=== PATIENT | male | born 1950 | race African-American/Black ===

== ENCOUNTER → 2016-11-25 | Outpatient (CLI) | payer BC ==
[~2016-11-25] MED LIST: ASPI-1035 PO; CLOP75TA2 PO; GABA-290 PO; HYDR-2510 PO; HYDR-3513 PO; INSU100C6 SQ; LISI20TA PO
[2016-11-25 08:51] LABS: HEMATOCRIT. 36.1 % (42.0-52.0); MEAN CORPUSCULAR HEMOGLOBIN 26.9 pg (28.0-32.0); MEAN CORPUSCULAR VOLUME 80.9 fL (80.0-94.0); MEAN PLATELET VOLUME 8.8 fl (7.4-10.4); PLATELET 136 x1000/uL (130-400); RED BLOOD CELL COUNT 4.46 mill/uL (4.7-6.1); RED CELL DISTRIBUTION WIDTH 13.7 % (11.6-14.6)
[2016-11-25 09:08] LABS: CARBON DIOXIDE 26 mEq/L (21-32); CHLORIDE 107 mEq/L (98-107)
[2016-11-25 10:21] LABS: PLATELET ESTIMATE NORMAL
[2016-11-26 13:07] LABS: MICROALBUMIN RANDOM URINE 192.9 ug/mL (Not Estab.); MICROALBUMIN/CREATININE RATIO 279.6 mg/g creat (0.0-30.0)
== END | disposition home or self-care (01) ==
LOC: LAB 08:24
PROVIDERS: ATTEND Internal Medicine Geriatric Medicine
DX: Z01.812 Encounter for preprocedural laboratory examination (principal); E11.40 Type 2 diabetes mellitus with diabetic neuropathy, unspecified
CPT/HCPCS: 36415; 80053; 82043; 82570; 83036; 85025

== ENCOUNTER → 2017-01-04 | Outpatient (CLI) | payer BC ==
[~2017-01-04] MED LIST changes: -ASPI-1035 PO; +ASPI-1159 PO
== END | disposition home or self-care (01) ==
LOC: PVL 09:27
PROVIDERS: ATTEND Podiatrist Foot & Ankle Surgery
DX: I73.9 Peripheral vascular disease, unspecified (principal)
CPT/HCPCS: 93923

== ENCOUNTER 2017-05-29 08:23 | Observation (INO) | payer BC, MEDICARE ==
[~2017-05-29] VITALS: Ht 177.8 cm; Wt 93.4 kg
[~2017-05-29 08:23] MED LIST changes: +CLOP75TA16 PO; -CLOP75TA2 PO
[2017-05-29 08:56] LABS: HEMATOCRIT. 35.4 % (42.0-52.0); HEMOGLOBIN. 11.3 g/dL (14.0-18.0); MEAN CORPUSCULAR HEMOGLOBIN 26.2 pg (28.0-32.0); MEAN CORPUSCULAR VOLUME 82.3 fL (80.0-94.0); MEAN PLATELET VOLUME 8.6 fl (7.4-10.4); PLATELET 175 x1000/uL (130-400); RED BLOOD CELL COUNT 4.31 mill/uL (4.7-6.1); RED CELL DISTRIBUTION WIDTH 12.9 % (11.6-14.6)
[2017-05-29] MEDS ORDERED: HEPARIN SODIUM 1,000 UNIT/1ML VIAL IV ONE (10:12)
[2017-05-29 10:16] LABS: PLATELET ESTIMATE NORMAL
[2017-05-29 10:40] LABS: PARTIAL THROMBOPLASTIN TIME 23.1 sec (23.4-31.0); PROTHROMBIN TIME 10.4 sec (9.4-11.6)
[2017-05-29 10:48] LABS: CHLORIDE 107 mEq/L (98-107)
[2017-05-29 10:54] LABS: CARBON DIOXIDE 29 mEq/L (21-32)
[2017-05-29] MEDS ORDERED: OLME1TAB30 PO (11:14)
[2017-05-29] MEDS ORDERED: TAMS-11 PO (11:14)
[2017-05-29] MEDS ORDERED: LIDOCAINE HCL 1% 20ML VIAL (Pyxis) INJ ONE (11:40)
[2017-05-29] MEDS ORDERED: IODIXANOL 320MG/ML 100 ML BOTTLE IV ONE (11:42)
[2017-05-29] MEDS ORDERED: FENTANYL CITRATE/PF 50MCG/ML 2ML VIAL ONE ×2 (12:00→13:25)
[2017-05-29] MEDS ORDERED: MIDAZOLAM HCL 2 MG/2 ML VIAL ONE ×2 (12:00→13:30)
[2017-05-29] MEDS ORDERED: HYDROMORPHONE HCL/PF 2MG/ML (OR) ONE ×2 (12:32→12:58)
[2017-05-29 12:33] LABS: HEPATITIS B SURFACE AB 4.1 mIU/mL
[2017-05-29] MEDS ORDERED: IOVERSOL 240MG/ML 100ML BOTTLE IV ONE (12:54)
[2017-05-29 13:12] LABS: HEPATITIS B CORE AB IGM NEGATIVE
[2017-05-29 13:14] LABS: HEPATITIS A AB IGM NEGATIVE (NEGATIVE)
[2017-05-29 15:15] VITALS: BP 148/85
[2017-05-29] MEDS ORDERED: CLOPIDOGREL 75MG TABLET PO NR (15:37)
[2017-05-29 16:40] VITALS: BP 148/85
[2017-05-29 20:00] VITALS: BP 157/91
[2017-05-29] MEDS ORDERED: ONDANSETRON 4MG ODT PO SCH (20:45)
== END 2017-05-29 21:00 | disposition home or self-care (01) ==
LOC: CCL 08:23 → INTOOBSV 08:24 → 6EST 08:24
PROVIDERS: ADMIT Surgery Vascular Surgery; ATTEND Surgery Vascular Surgery
DX: I73.9 Peripheral vascular disease, unspecified (principal)
CPT/HCPCS: 36415; 37224; 37228; 37232; 75710; 80048; 82043; 82570; 83036; 85025; 85347; 85610; 85730; 86705; 86706; 86709; 86803; C1725; C1760; C1769; C1887; C1893; C1894; G0378; J1170; J1644; J2250; J3010; J3490; L1830; Q0162; Q9967

== ENCOUNTER → 2017-08-04 | Outpatient (CLI) | payer BC, MEDICARE ==
[~2017-08-04] MED LIST changes: +OLME1TAB30 PO; +TAMS-11 PO
[2017-08-04 10:45] LABS: HEPATITIS B SURFACE AB < 3.1 mIU/mL
[2017-08-04 11:25] LABS: HEPATITIS A AB IGM NEGATIVE (NEGATIVE)
[2017-08-04 11:31] LABS: HEPATITIS B SURFACE ANTIGEN REACTIVE PEND CONFIR
[2017-08-07 08:11] LABS: HBSAG CONFIRMATION Positive (.); HBSAG SCREEN Confirm. indicated (Negative)
[2017-11-20 10:20] LABS: CHLORIDE 104 mEq/L (98-107)
== END | disposition home or self-care (01) ==
LOC: LAB 09:06
PROVIDERS: ATTEND Internal Medicine Geriatric Medicine
DX: I10 Essential (primary) hypertension (principal); E78.00 Pure hypercholesterolemia, unspecified
CPT/HCPCS: 36415; 80061; 82270; 86705; 86706; 86709; 86803; 87340

== ENCOUNTER 2017-08-24 09:44 | Day surgery (SDC) | payer BC, MEDICARE ==
[~2017-08-24] VITALS: Ht 177.8 cm; Wt 93.4 kg
[2017-08-24 11:25] LABS: HEMATOCRIT 35.8 % (42.0-52.0); HEMOGLOBIN 11.5 g/dL (14.0-18.0); MEAN CORPUSCULAR HEMOGLOBIN 26.3 pg (28.0-32.0); MEAN CORPUSCULAR VOLUME 82.3 fL (80.0-94.0); PLATELET 130 x1000/uL (130-400); RED BLOOD CELL COUNT 4.35 mill/uL (4.7-6.1); RED CELL DISTRIBUTION WIDTH 13.3 % (11.6-14.6)
[2017-08-24 11:35] LABS: PARTIAL THROMBOPLASTIN TIME 23.6 sec (23.4-31.0); PROTHROMBIN TIME 10.8 sec (9.4-11.6)
[2017-08-24] MEDS ORDERED: FENTANYL CITRATE/PF 50MCG/ML 2ML VIAL ONE (13:32)
[2017-08-24] MEDS ORDERED: MIDAZOLAM HCL 2 MG/2 ML VIAL ONE (13:32)
[2017-08-24] MEDS ORDERED: LIDOCAINE HCL/PF 1% 10 MG/ML 5ML VIAL ONE (13:33)
[2017-08-24] MEDS ORDERED: IODIXANOL 320MG/ML 100 ML BOTTLE IV ONE (14:20)
[2017-08-24] MEDS ORDERED: ONDANSETRON HCL 4MG/2ML VIAL IV PRN (16:00)
[2017-08-24] MEDS ORDERED: ATROPINE SULFATE 1MG/10ML SYR IV PRN (16:00)
[2017-08-24] MEDS ORDERED: ACETAMINOPHEN 325MG TABLET PO PRN (16:00)
[2017-08-24] MEDS ORDERED: MORPHINE SULFATE 4 MG/ML CPJ (NOT FOR IM USE) IV PRN (16:00)
== END 2017-08-24 19:15 | disposition home or self-care (01) ==
LOC: CCL 09:44
PROVIDERS: ATTEND Surgery Vascular Surgery
DX: I70.292 Other atherosclerosis of native arteries of extremities, left leg (principal); D63.8 Anemia in other chronic diseases classified elsewhere; I12.9 Hypertensive chronic kidney disease with stage 1 through stage 4 chronic kidney disease, or unspecified chronic kidney disease; N18.2 Chronic kidney disease, stage 2 (mild); E11.22 Type 2 diabetes mellitus with diabetic chronic kidney disease; Z98.890 Other specified postprocedural states; Z79.4 Long term (current) use of insulin
CPT/HCPCS: 36247; 36415; 75710; 75774; 80048; 85027; 85610; 85730; 99152; C1760; C1769; J1644; J2250; J3010; J3490; Q9967; 36245

== ENCOUNTER → 2017-10-09 | Outpatient (CLI) | payer BC, MEDICARE ==
[2017-10-09 10:31] LABS: BASOPHILS % 0.7 % (0.0-2.0); HEMATOCRIT. 36.4 % (42.0-52.0); HEMOGLOBIN. 11.9 g/dL (14.0-18.0); LYMPHOCYTES % 39.3 % (20.0-50.0); MEAN CORPUSCULAR HEMOGLOBIN 26.8 pg (28.0-32.0); MEAN PLATELET VOLUME 8.9 fl (7.4-10.4); MONOCYTES % 7.4 % (2.0-8.0); NEUTROPHILS % 42.6 % (40.0-76.0); PLATELET 155 x1000/uL (130-400); RED BLOOD CELL COUNT 4.45 mill/uL (4.7-6.1); RED CELL DISTRIBUTION WIDTH 13.7 % (11.6-14.6)
[2017-10-09 10:33] LABS: CHLORIDE 104 mEq/L (98-107)
[2017-10-09 10:42] LABS: LDL CHOLESTEROL 70 mg/dL (5-100); TOTAL IRON BINDING CAPACITY 333 ug/dL (250-450)
[2017-10-09 10:44] LABS: HDL CHOLESTEROL 43 mg/dL (40-59)
[2017-10-09 10:46] LABS: KETONES URINE NEGATIVE (NEGATIVE); LEUKOCYTE ESTERASE URINE 1+ (NEGATIVE); NITRITE URINE NEGATIVE (NEGATIVE); OCCULT BLOOD URINE NEGATIVE (NEGATIVE); PH URINE 6.5 (4.5-8.0); PROTEIN URINE NEGATIVE (NEGATIVE); SPECIFIC GRAVITY URINE 1.012 (1.005-1.030); UROBILINOGEN URINE 0.2 E.U./dL (0.2-1.0)
[2017-10-09 10:47] LABS: CLARITY URINE CLEAR (CLEAR); COLOR URINE YELLOW (YELLOW)
[2017-10-09 11:35] LABS: HEPATITIS B SURFACE AB < 3.1 mIU/mL; PROSTRATE SPECIFIC AG TOTAL 1.02 ng/mL (0.0-4.0)
[2017-10-09 12:10] LABS: HEPATITIS B CORE AB IGM NEGATIVE
[2017-10-09 12:12] LABS: HEPATITIS A AB IGM NEGATIVE (NEGATIVE)
[2017-10-09 14:45] LABS: VITAMIN B12 SERUM 386 pg/mL (211-911)
[2017-10-10 13:07] LABS: *CREATININE RANDOM URINE 101.7 mg/dL (Not Estab.); MICROALBUMIN RANDOM URINE 20.8 ug/mL (Not Estab.)
[2017-10-10 15:10] LABS: HBSAG CONFIRMATION Positive (.); HBSAG SCREEN Confirm. indicated (Negative)
[2017-10-10 17:07] LABS: VITAMIN D 25-OH 29.3 ng/mL (30.0-100.0)
== END | disposition home or self-care (01) ==
LOC: LAB 09:23
PROVIDERS: ATTEND Internal Medicine Geriatric Medicine
DX: I10 Essential (primary) hypertension (principal); E78.00 Pure hypercholesterolemia, unspecified; R79.89 Other specified abnormal findings of blood chemistry; Z79.899 Other long term (current) drug therapy
CPT/HCPCS: 36415; 80053; 80061; 81003; 82043; 82306; 82570; 82607; 83036; 83540; 83550; 84153; 84443; 85025; 86592; 86705; 86706; 86709; 86803; 87086; 87340

== ENCOUNTER → 2017-11-20 | Outpatient (CLI) | payer BC, MEDICARE | END | disposition home or self-care (01) | LOC: LAB 09:44 | PROVIDERS: ATTEND Internal Medicine Geriatric Medicine | DX: I10 Essential (primary) hypertension (principal) | CPT/HCPCS: 82270 ==

== ENCOUNTER → 2018-03-30 | Outpatient (CLI) | payer BC, MEDICARE ==
[2018-03-30 12:15] LABS: BASOPHILS % 0.7 % (0.0-2.0); EOSINOPHILS % 12.5 % (0.0-5.0); HEMOGLOBIN. 11.1 g/dL (14.0-18.0); LYMPHOCYTES % 34.9 % (20.0-50.0); MEAN CORPUSCULAR HEMOGLOBIN 26.7 pg (28.0-32.0); MEAN CORPUSCULAR VOLUME 81.5 fL (80.0-94.0); MEAN PLATELET VOLUME 8.7 fl (7.4-10.4); MONOCYTES % 8.2 % (2.0-8.0); NEUTROPHILS % 43.7 % (40.0-76.0); PLATELET 156 x1000/uL (130-400); RED BLOOD CELL COUNT 4.17 mill/uL (4.7-6.1); RED CELL DISTRIBUTION WIDTH 13.4 % (11.6-14.6)
[2018-03-30 12:30] LABS: CHLORIDE 104 mEq/L (98-107)
== END | disposition home or self-care (01) ==
LOC: LAB 11:51
PROVIDERS: ATTEND Internal Medicine Geriatric Medicine
DX: E11.40 Type 2 diabetes mellitus with diabetic neuropathy, unspecified (principal)
CPT/HCPCS: 36415; 80053; 83036; 85025

== ENCOUNTER → 2018-06-21 | Outpatient (CLI) | payer BC ==
[2018-06-21 10:45] LABS: BASOPHILS % 1.2 % (0.0-2.0); EOSINOPHILS % 13.5 % (0.0-5.0); HEMATOCRIT. 36.9 % (42.0-52.0); LYMPHOCYTES % 39.1 % (20.0-50.0); MEAN CORPUSCULAR HEMOGLOBIN 26.5 pg (28.0-32.0); MEAN CORPUSCULAR VOLUME 81.4 fL (80.0-94.0); MEAN PLATELET VOLUME 8.6 fl (7.4-10.4); MONOCYTES % 6.1 % (2.0-8.0); NEUTROPHILS % 40.1 % (40.0-76.0); PLATELET 113 x1000/uL (130-400); RED BLOOD CELL COUNT 4.53 mill/uL (4.7-6.1); RED CELL DISTRIBUTION WIDTH 14.1 % (11.6-14.6)
[2018-06-21 11:01] LABS: PHOSPHORUS 3.8 mg/dL (2.5-4.9)
== END | disposition home or self-care (01) ==
LOC: LAB 09:28
PROVIDERS: ATTEND Internal Medicine Geriatric Medicine
DX: I73.9 Peripheral vascular disease, unspecified (principal); I10 Essential (primary) hypertension; E11.40 Type 2 diabetes mellitus with diabetic neuropathy, unspecified
CPT/HCPCS: 36415; 80048; 83036; 84100; 84550

== ENCOUNTER → 2018-07-25 | Outpatient (CLI) | payer BC ==
[~2018-07-25] MED LIST changes: +ATEN50TA PO; +INSU100I33 SQ; +ROSU10TA25 PO
[2018-07-25 10:36] LABS: BASOPHILS % 0.4 % (0.0-2.0); EOSINOPHILS % 7.6 % (0.0-5.0); HEMATOCRIT. 37.7 % (42.0-52.0); HEMOGLOBIN. 12.1 g/dL (14.0-18.0); LYMPHOCYTES % 45.9 % (20.0-50.0); MEAN CORPUSCULAR VOLUME 81.3 fL (80.0-94.0); MEAN PLATELET VOLUME 8.6 fl (7.4-10.4); MONOCYTES % 7.8 % (2.0-8.0); NEUTROPHILS % 38.3 % (40.0-76.0); PLATELET 135 x1000/uL (130-400); RED BLOOD CELL COUNT 4.64 mill/uL (4.7-6.1); RED CELL DISTRIBUTION WIDTH 13.7 % (11.6-14.6)
[2018-07-25 10:46] LABS: CHLORIDE 105 mEq/L (98-107)
== END | disposition home or self-care (01) ==
LOC: LAB 09:45
PROVIDERS: ATTEND Internal Medicine Geriatric Medicine
DX: I12.9 Hypertensive chronic kidney disease with stage 1 through stage 4 chronic kidney disease, or unspecified chronic kidney disease (principal); N18.9 Chronic kidney disease, unspecified; R73.09 Other abnormal glucose; R33.9 Retention of urine, unspecified
CPT/HCPCS: 36415; 83036

== ENCOUNTER → 2018-08-07 | Outpatient (CLI) | payer BC | END | disposition home or self-care (01) | LOC: US 08:34 | PROVIDERS: ATTEND Internal Medicine Geriatric Medicine | DX: R39.198 Other difficulties with micturition (principal); I12.9 Hypertensive chronic kidney disease with stage 1 through stage 4 chronic kidney disease, or unspecified chronic kidney disease; E11.22 Type 2 diabetes mellitus with diabetic chronic kidney disease; N18.9 Chronic kidney disease, unspecified | CPT/HCPCS: 76770; 76857 ==

== ENCOUNTER 2018-08-27 06:32 | Inpatient (IN) | payer BC ==
[2018-08-27] VITALS (8 sets, daily range): BP systolic 120–156; BP diastolic 66–89
[~2018-08-27] VITALS: Ht 177.8 cm; Wt 92.1 kg
[~2018-08-27 06:32] MED LIST changes: -ATEN50TA PO; -INSU100I33 SQ; -ROSU10TA25 PO
[2018-08-27 07:48] LABS: BASOPHILS % 0.5 % (0.0-2.0); EOSINOPHILS % 7.6 % (0.0-5.0); HEMATOCRIT. 37.5 % (42.0-52.0); LYMPHOCYTES % 31.3 % (20.0-50.0); MEAN CORPUSCULAR HEMOGLOBIN 26.4 pg (28.0-32.0); MEAN CORPUSCULAR VOLUME 82.4 fL (80.0-94.0); MONOCYTES % 5.1 % (2.0-8.0); NEUTROPHILS % 55.5 % (40.0-76.0); PLATELET 115 x1000/uL (130-400); RED BLOOD CELL COUNT 4.55 mill/uL (4.7-6.1); RED CELL DISTRIBUTION WIDTH 13.9 % (11.6-14.6)
[2018-08-27 07:56] LABS: PARTIAL THROMBOPLASTIN TIME 24.7 sec (23.4-31.0); PROTHROMBIN TIME 10.1 sec (9.1-11.1)
[2018-08-27] MEDS ORDERED: LIDOCAINE HCL 1% 20ML VIAL (Pyxis) INJ ONE (08:16)
[2018-08-27] MEDS ORDERED: IODIXANOL 320MG/ML 100 ML BOTTLE IV ONE (08:16)
[2018-08-27] MEDS ORDERED: MIDAZOLAM HCL 2 MG/2 ML VIAL ONE (08:18)
[2018-08-27] MEDS ORDERED: FENTANYL CITRATE/PF 50MCG/ML 2ML VIAL ONE (08:19)
[2018-08-27] MEDS ORDERED: IOHEXOL-300 100 ML BOTTLE ONE (08:22)
[2018-08-27] MEDS ORDERED: CLOPIDOGREL 75MG TABLET PO NR (10:00)
[2018-08-27] MEDS ORDERED: HYDROCODONE/APAP 7.5/325MG 1 TAB TABLET PO PRN (12:30)
[2018-08-27] MEDS ORDERED: DEXTROSE 50% WATER 50ML SYRINGE IV PRN (12:30)
[2018-08-27] MEDS: LISINOPRIL 20MG TABLET PO SCH (12:44)
[2018-08-27] MEDS: INSULIN LISPRO 100 UNITS/ML SUBCUT SCH ×3 (12:44→22:02)
[2018-08-27] MEDS: ASPIRIN 81MG TABLET PO SCH (12:45)
[2018-08-27] MEDS ORDERED: HEPARIN SODIUM 1,000 UNIT/1ML VIAL IV ONE (13:54)
[2018-08-27] MEDS: GABAPENTIN 300MG CAPSULE PO SCH ×2 (14:51→22:18)
[2018-08-27] MEDS: BLOOD SUGAR DIAGNOSTIC STRIP TEST SCH ×2 (16:10→21:00)
[2018-08-27] MEDS: TAMSULOSIN HCL 0.4MG SR CAPSULE PO SCH (17:36)
[2018-08-27] MEDS: SODIUM CHL 0.45% + KCL 20MEQ/L 1,000 ML IV SCH (17:37)
[2018-08-27] MEDS ORDERED: INSULIN GLARGINE UD 100 UNITS/ML SYR SUBCUT SCH (22:00)
[2018-08-28] VITALS (9 sets, daily range): BP systolic 112–169; BP diastolic 51–87
[2018-08-28] MEDS: SODIUM CHL 0.45% + KCL 20MEQ/L 1,000 ML IV SCH (02:43)
[2018-08-28] MEDS: GABAPENTIN 300MG CAPSULE PO SCH (06:11)
[2018-08-28] MEDS: BLOOD SUGAR DIAGNOSTIC STRIP TEST SCH (06:13)
[2018-08-28 06:52] LABS: CHLORIDE 108 mEq/L (98-107)
[2018-08-28 07:15] LABS: BASOPHILS % 0.4 % (0.0-2.0); HEMATOCRIT. 32.2 % (42.0-52.0); HEMOGLOBIN. 10.4 g/dL (14.0-18.0); LYMPHOCYTES % 34.5 % (20.0-50.0); MEAN CORPUSCULAR HEMOGLOBIN 26.7 pg (28.0-32.0); MEAN CORPUSCULAR VOLUME 82.6 fL (80.0-94.0); MEAN PLATELET VOLUME 8.8 fl (7.4-10.4); MONOCYTES % 8.7 % (2.0-8.0); NEUTROPHILS % 48.4 % (40.0-76.0); PLATELET 96 x1000/uL (130-400); RED CELL DISTRIBUTION WIDTH 13.5 % (11.6-14.6)
[2018-08-28] MEDS: INSULIN LISPRO 100 UNITS/ML SUBCUT SCH (07:54)
[2018-08-28] MEDS: ASPIRIN 81MG TABLET PO SCH (07:56)
[2018-08-28] MEDS: LISINOPRIL 20MG TABLET PO SCH (07:56)
[2018-08-28] MEDS: TAMSULOSIN HCL 0.4MG SR CAPSULE PO SCH (07:56)
[2018-08-28] MEDS ORDERED: CLOPIDOGREL 75MG TABLET PO SCH ×2 (09:00→10:00)
== END 2018-08-28 11:02 | disposition home or self-care (01) | DRG 253 ==
LOC: CCL 06:32 → 3WST 06:33
PROVIDERS: ADMIT Internal Medicine Geriatric Medicine; ATTEND Surgery Vascular Surgery
PROC: 047T34Z Dilation of Right Peroneal Artery with Drug-eluting Intraluminal Device, Percutaneous Approach (ICD-10-PCS; principal; 2018-08-27)
PROC: 047M3Z1 Dilation of Right Popliteal Artery using Drug-Coated Balloon, Percutaneous Approach (ICD-10-PCS; 2018-08-27)
PROC: B41F1ZZ Fluoroscopy of Right Lower Extremity Arteries using Low Osmolar Contrast (ICD-10-PCS; 2018-08-27)
DX: I70.221 Atherosclerosis of native arteries of extremities with rest pain, right leg (principal); N17.9 Acute kidney failure, unspecified; D64.9 Anemia, unspecified; E11.3599 Type 2 diabetes mellitus with proliferative diabetic retinopathy without macular edema, unspecified eye; E11.51 Type 2 diabetes mellitus with diabetic peripheral angiopathy without gangrene; E86.0 Dehydration; E78.00 Pure hypercholesterolemia, unspecified; I10 Essential (primary) hypertension; N40.0 Benign prostatic hyperplasia without lower urinary tract symptoms; Z89.422 Acquired absence of other left toe(s); Z98.49 Cataract extraction status, unspecified eye
CPT/HCPCS: 36415; 37224; 37230; 75710; 80048; 82962; 85347; 93005; 97162; C1725; C1760; C1769; C1874; C1887; C1893; C1894; J1644; J1815; J2250; J3010; J3480; J3490; Q9967

== ENCOUNTER 2018-09-07 08:51 | Inpatient (IN) | payer BC, MEDICARE, MEDICAID ==
[2018-09-07] VITALS (9 sets, daily range): BP systolic 141–168; BP diastolic 71–84
[~2018-09-07] VITALS: Ht 179.1 cm; Wt 102.7 kg
[2018-09-07] MEDS ORDERED: INSU100I33 SQ (10:44)
[2018-09-07] MEDS ORDERED: ROSU10TA25 PO (10:44)
[2018-09-07] MEDS ORDERED: ATEN50TA PO (10:44)
[2018-09-07] MEDS ORDERED: IODIXANOL 320MG/ML 100 ML BOTTLE IV ONE (10:46)
[2018-09-07] MEDS ORDERED: LIDOCAINE HCL 1% 20ML VIAL (Pyxis) INJ ONE (10:46)
[2018-09-07] MEDS ORDERED: IOHEXOL-300 100 ML BOTTLE ONE (10:46)
[2018-09-07 11:09] LABS: BASOPHILS % 0.7 % (0.0-2.0); EOSINOPHILS % 9.2 % (0.0-5.0); HEMATOCRIT. 36.8 % (42.0-52.0); HEMOGLOBIN. 11.9 g/dL (14.0-18.0); LYMPHOCYTES % 33.3 % (20.0-50.0); MEAN CORPUSCULAR HEMOGLOBIN 26.9 pg (28.0-32.0); MEAN CORPUSCULAR VOLUME 82.9 fL (80.0-94.0); MEAN PLATELET VOLUME 8.8 fl (7.4-10.4); MONOCYTES % 7.1 % (2.0-8.0); NEUTROPHILS % 49.7 % (40.0-76.0); PLATELET 136 x1000/uL (130-400); RED BLOOD CELL COUNT 4.44 mill/uL (4.7-6.1); RED CELL DISTRIBUTION WIDTH 13.7 % (11.6-14.6)
[2018-09-07 11:17] LABS: PARTIAL THROMBOPLASTIN TIME 21.5 sec (23.4-31.0)
[2018-09-07 11:22] LABS: CHLORIDE 106 mEq/L (98-107)
[2018-09-07] MEDS ORDERED: FENTANYL CITRATE/PF 50MCG/ML 2ML VIAL ONE (11:37)
[2018-09-07] MEDS ORDERED: MIDAZOLAM HCL 2 MG/2 ML VIAL ONE (11:37)
[2018-09-07] MEDS ORDERED: HEPARIN SODIUM 1,000 UNIT/1ML VIAL IV ONE (12:00)
[2018-09-07] MEDS: CLOPIDOGREL 75MG TABLET PO SCH (14:20)
[2018-09-07] MEDS ORDERED: ACETAMINOPHEN 325MG TABLET PO PRN (16:30)
[2018-09-07] MEDS ORDERED: AMLODIPINE 10MG TABLET PO NR (17:00)
[2018-09-07] MEDS ORDERED: LOSARTAN POTASSIUM 100 MG TABLET PO NR (17:00)
[2018-09-07] MEDS ORDERED: CLONIDINE 0.1MG TABLET PO PRN (18:15)
[2018-09-07] MEDS ORDERED: TAMSULOSIN HCL 0.4MG SR CAPSULE PO NR (18:15)
[2018-09-07] MEDS ORDERED: ATENOLOL 50 MG TABLET PO NR (18:15)
[2018-09-07] MEDS: BLOOD SUGAR DIAGNOSTIC STRIP TEST SCH (20:31)
[2018-09-07] MEDS ORDERED: ATORVASTATIN CALCIUM 20MG TABLET PO SCH (21:00)
[2018-09-07] MEDS ORDERED: INS NPH/REG HM 70-30 100 UNITS/ML 10ML VIAL (HUMULIN 70-30) SUBCUT NR (22:00)
[2018-09-07] MEDS: SODIUM CHL 0.45% + KCL 20MEQ/L 1,000 ML IV SCH (22:11)
[2018-09-08] VITALS: BP 114/55
[2018-09-08 01:11] VITALS: BP 131/69
[2018-09-08 02:00] VITALS: BP 124/58
[2018-09-08] MEDS: SODIUM CHL 0.45% + KCL 20MEQ/L 1,000 ML IV SCH (02:56)
[2018-09-08 04:00] VITALS: BP 131/59
[2018-09-08 06:00] VITALS: BP 137/66
[2018-09-08 06:50] LABS: BASOPHILS % 0.6 % (0.0-2.0); EOSINOPHILS % 7.2 % (0.0-5.0); HEMATOCRIT. 30.8 % (42.0-52.0); LYMPHOCYTES % 33.9 % (20.0-50.0); MEAN CORPUSCULAR HEMOGLOBIN 26.4 pg (28.0-32.0); MEAN CORPUSCULAR VOLUME 81.4 fL (80.0-94.0); NEUTROPHILS % 48.3 % (40.0-76.0); PLATELET 129 x1000/uL (130-400); RED BLOOD CELL COUNT 3.78 mill/uL (4.7-6.1); RED CELL DISTRIBUTION WIDTH 13.5 % (11.6-14.6)
[2018-09-08 08:00] VITALS: BP 131/69
[2018-09-08] MEDS ORDERED: ATENOLOL 50 MG TABLET PO SCH (09:00)
[2018-09-08] MEDS ORDERED: AMLODIPINE 10MG TABLET PO SCH (09:00)
[2018-09-08] MEDS: BLOOD SUGAR DIAGNOSTIC STRIP TEST SCH (09:00)
[2018-09-08] MEDS ORDERED: TAMSULOSIN HCL 0.4MG SR CAPSULE PO SCH (09:00)
[2018-09-08] MEDS ORDERED: LOSARTAN POTASSIUM 100 MG TABLET PO SCH (09:00)
[2018-09-08] MEDS: CLOPIDOGREL 75MG TABLET PO SCH (09:37)
== END 2018-09-08 09:45 | disposition home or self-care (01) | DRG 254 ==
LOC: CCL 08:51 → 3WST 08:52
PROVIDERS: ADMIT Surgery Vascular Surgery; ATTEND Surgery Vascular Surgery
PROC: B41G1ZZ Fluoroscopy of Left Lower Extremity Arteries using Low Osmolar Contrast (ICD-10-PCS; principal; 2018-09-07)
PROC: 047S3ZZ Dilation of Left Posterior Tibial Artery, Percutaneous Approach (ICD-10-PCS; 2018-09-07)
PROC: 047W3ZZ Dilation of Left Foot Artery, Percutaneous Approach (ICD-10-PCS; 2018-09-07)
DX: E11.51 Type 2 diabetes mellitus with diabetic peripheral angiopathy without gangrene (principal); E78.00 Pure hypercholesterolemia, unspecified; E86.0 Dehydration; I10 Essential (primary) hypertension; N40.0 Benign prostatic hyperplasia without lower urinary tract symptoms; I70.212 Atherosclerosis of native arteries of extremities with intermittent claudication, left leg; D50.9 Iron deficiency anemia, unspecified; Z89.412 Acquired absence of left great toe; Z89.422 Acquired absence of other left toe(s); Z98.42 Cataract extraction status, left eye; Z98.41 Cataract extraction status, right eye; Z89.431 Acquired absence of right foot; Z79.899 Other long term (current) drug therapy; Z79.4 Long term (current) use of insulin; Z79.82 Long term (current) use of aspirin; Z95.828 Presence of other vascular implants and grafts
CPT/HCPCS: 36415; 37228; 75710; 80048; 82962; 93005; C1725; C1760; C1769; C1887; C1893; C1894; J1644; J1815; J2250; J3010; J3480; J3490; Q9967

== ENCOUNTER → 2018-11-12 | Outpatient (CLI) | payer BC ==
[~2018-11-12] MED LIST changes: +ATEN50TA PO; -GABA-290 PO; -HYDR-2510 PO; -HYDR-3513 PO; -INSU100C6 SQ; +INSU100I33 SQ; -LISI20TA PO; +ROSU10TA25 PO
[2018-11-12 13:43] LABS: BASOPHILS % 0.7 % (0.0-2.0); EOSINOPHILS % 6.3 % (0.0-5.0); HEMATOCRIT. 35.2 % (42.0-52.0); HEMOGLOBIN. 11.3 g/dL (14.0-18.0); LYMPHOCYTES % 36.4 % (20.0-50.0); MEAN CORPUSCULAR HEMOGLOBIN 26.3 pg (28.0-32.0); MEAN CORPUSCULAR VOLUME 81.9 fL (80.0-94.0); MEAN PLATELET VOLUME 8.8 fl (7.4-10.4); MONOCYTES % 7.4 % (2.0-8.0); NEUTROPHILS % 49.2 % (40.0-76.0); PLATELET 110 x1000/uL (130-400); RED BLOOD CELL COUNT 4.29 mill/uL (4.7-6.1); RED CELL DISTRIBUTION WIDTH 13.7 % (11.6-14.6)
== END | disposition home or self-care (01) ==
LOC: LAB 13:20
PROVIDERS: ATTEND Internal Medicine Geriatric Medicine
DX: I73.9 Peripheral vascular disease, unspecified (principal); I10 Essential (primary) hypertension
CPT/HCPCS: 36415; 80048; 80061; 83036; 84550

== ENCOUNTER → 2020-02-27 | Outpatient (CLI) | payer MEDICARE ==
[~2020-02-27] MED LIST changes: -ASPI-1159 PO; +ASPI-1497 PO; -CLOP75TA16 PO; +CLOP75TA4 PO
[2020-02-27 10:36] LABS: BASOPHILS % 0.6 % (0.0-2.0); EOSINOPHILS % 7.2 % (0.0-5.0); HEMATOCRIT. 35.8 % (42.0-52.0); HEMOGLOBIN. 11.7 g/dL (14.0-18.0); LYMPHOCYTES % 33.5 % (20.0-50.0); MEAN CORPUSCULAR HEMOGLOBIN 27.4 pg (28.0-32.0); MEAN CORPUSCULAR VOLUME 84.1 fL (80.0-94.0); MEAN PLATELET VOLUME 8.8 fl (7.4-10.4); NEUTROPHILS % 51.7 % (40.0-76.0); PLATELET 122 x1000/uL (130-400); RED BLOOD CELL COUNT 4.25 mill/uL (4.7-6.1); RED CELL DISTRIBUTION WIDTH 13.8 % (11.6-14.6)
[2020-02-27 10:47] LABS: CHLORIDE 105 mEq/L (98-107)
[2020-02-27 10:57] LABS: TOTAL IRON BINDING CAPACITY 313 ug/dL (250-450)
[2020-02-27 11:02] LABS: T4 FREE 1.16 ng/dL (0.76-1.46)
[2020-02-27 13:08] LABS: PROSTRATE SPECIFIC AG TOTAL 1.6 ng/mL (0.0-4.0)
== END | disposition home or self-care (01) ==
LOC: LAB 09:54
PROVIDERS: ATTEND Internal Medicine Geriatric Medicine
DX: Z12.5 Encounter for screening for malignant neoplasm of prostate (principal); Z00.01 Encounter for general adult medical examination with abnormal findings; N39.0 Urinary tract infection, site not specified; I10 Essential (primary) hypertension; E11.9 Type 2 diabetes mellitus without complications; Z11.59 Encounter for screening for other viral diseases
CPT/HCPCS: 36415; 80053; 82248; 82607; 82728; 83036; 83540; 83550; 84153; 84439; 84443; 84479; 85025; 86592; G0103

== ENCOUNTER → 2020-05-04 | Outpatient (CLI) | payer MEDICARE, MEDICAID | END | disposition home or self-care (01) | LOC: LAB 07:55 | PROVIDERS: ATTEND Internal Medicine Geriatric Medicine | DX: Z20.828 Contact with and (suspected) exposure to other viral communicable diseases (principal) | CPT/HCPCS: C9803; U0003 ==

== ENCOUNTER → 2020-05-06 | Outpatient (CLI) | payer MEDICARE, MEDICAID | END | disposition home or self-care (01) | LOC: US 08:46 | PROVIDERS: ATTEND Internal Medicine Geriatric Medicine | DX: K76.0 Fatty (change of) liver, not elsewhere classified (principal) | CPT/HCPCS: 76700 ==

== ENCOUNTER → 2020-05-21 | Outpatient (CLI) | payer MEDICARE, MEDICAID ==
[2020-05-21 10:01] LABS: T4 FREE 1.21 ng/dL (0.76-1.46)
== END | disposition home or self-care (01) ==
LOC: LAB 08:59
PROVIDERS: ATTEND Internal Medicine Geriatric Medicine
DX: I12.9 Hypertensive chronic kidney disease with stage 1 through stage 4 chronic kidney disease, or unspecified chronic kidney disease (principal); N18.2 Chronic kidney disease, stage 2 (mild); Z03.818 Encounter for observation for suspected exposure to other biological agents ruled out
CPT/HCPCS: 36415; 80061; 84436; 84439; 84443; 84479

== ENCOUNTER → 2024-05-16 | Outpatient (CLI) | payer MEDICARE, MEDICAID ==
[~2024-05-16] MED LIST changes: +CLOP-31 PO; -CLOP75TA4 PO
== END | disposition home or self-care (01) ==
LOC: CARD 10:32
PROVIDERS: ATTEND Internal Medicine Geriatric Medicine
DX: I11.9 Hypertensive heart disease without heart failure (principal); R60.9 Edema, unspecified
CPT/HCPCS: 93306